=== PATIENT | female | born 2000 | race Caucasian/White ===

== ENCOUNTER 2024-07-13 17:46 | Emergency (ER) | payer BC, SELFPAY ==
[2024-07-13 17:49] VITALS: BP 157/94
--- NOTE | 2024-07-13 18:41 | ED.GENMED ---
History of Present Illness
General
Chief Complaint: Skin Problem
Source: patient
Exam Limitations: none
Time Seen by Provider: 07/13/24 18:41
Nursing documentation reviewed up to this point in time: agreed with
History of Present Illness
History of Present Illness:
24-year-old female presenting to the emergency department today with concerns of pilonidal cyst over the past few days has a history of this in the past. Does follow-up with general surgery. Has an appointment tomorrow. Denies any fevers or
systemic symptoms.
Review of Systems
Review of Systems
Allergies reviewed?: Yes
All Other Systems: ROS reviewed and negative except as documented in HPI and ROS
Phy Exam
Physical Exam
Physical Exam:
GENERAL: Alert , in no apparent distress
EYE: pupils equal and reactive
NECK: Supple, no significant adenopathy.
ENT: o/p clr, mmm.
CARDIAC: Regular rate and rhythm .
LUNGS: Clear breath sounds bilaterally, no acute respiratory distress, no wheezes/rales/rhonchi
ABDOMEN: Pilonidal cyst with spontaneous drainage. Small amount of surrounding redness and warmth. Abdomen is soft, without focal tenderness, no r/g, no cvat
NEUROLOGICAL: Alert and oriented, no focal neuro deficits
SKIN: Warm and dry, skin intact.
MUSCULOSKELETAL: No edema, well perfused.
PSYCH: Normal and appropriate interaction.
Course
Vital Signs
Initial and Last Documented VS:
Initial Vital Signs
Temp Pulse Resp BP Pulse Ox
97.7 F 86 20 157/94 99
07/13/24 17:49 07/13/24 17:49 07/13/24 17:49 07/13/24 17:49 07/13/24 17:49
Last Documented Vital Signs
Temp Pulse Resp BP Pulse Ox
97.7 F 86 20 157/94 99
07/13/24 17:49 07/13/24 17:49 07/13/24 17:49 07/13/24 17:49 07/13/24 17:49
MDM/Problems Addressed
MDM/Problems Addressed:
24-year-old female presenting with pilonidal cyst with spontaneous drainage. Small mount of surrounding redness potentially surrounded by cellulitis concerning this was started on antibiotics otherwise we will see her general surgeon tomorrow.
Generally well-appearing.
*Critical Care Note
Total Time (30-74mins, 75-104mins- exclusive of procedures): Not Applicable
ED Attending Note
-
Portions of this chart may have been created with voice recognition software.� Occasional wrong word or��sound alike� substitutions may have occurred due to the inherent limitations of voice recognition software.
Discharge Plan
Departure
Patient Disposition: Home (Routine Discharge)
Date of Disposition: 07/13/24
Time of Disposition: 18:42
Patient with high blood pressure during this ER visit?: No
Condition: Good
Covid-19: Not Applicable
Discharge Problem:
Pilonidal cyst
Instructions: Pilonidal Cyst (DC)
Prescriptions:
New
amoxicillin-pot clavulanate 875-125 mg tablet
1 tab PO BID 7 Days Qty: 14 0RF
Activity Restrictions/Additional Instructions:
You came to the emergency department today with concerns of a pilonidal cyst that appear to be draining. You are started on antibiotics and please follow-up with the general surgeon tomorrow for further recommendations. Return to the emergency
department for any worsening, new or concerning symptoms.
Interventions
Interventions:
*Risk Screen - Suicide Last Done: 07/13/24 17:48
*General Assessment Last Done: 07/13/24 17:48
*Neglect/Abuse Screening Last Done: 07/13/24 17:48
Discharge Date and Time
Print Language: YAKUT
[2024-07-13] MEDS: KEFLEX 500 MG PO (18:55)
== END 2024-07-13 18:56 | disposition home or self-care (01) ==
LOC: EMR 17:46
PROVIDERS: EMERGENCY PHYSICIAN Emergency Medicine; FAMILY PHYSICIAN Internal Medicine
DX: L05.91 Pilonidal cyst without abscess (principal)
CPT/HCPCS: 99282

== ENCOUNTER 2024-09-02 06:07 | Day surgery (SDC) | payer BC, SELFPAY ==
[2024-09-02] VITALS (7 sets, daily range): BP systolic 121–145; BP diastolic 61–95; BMI 42.3
[2024-09-02] MEDS: TYLENOL 1000 MG PO (06:38)
[2024-09-02] MEDS: NORMOSOL-R/PLASMALYTE-A 1000 IV (06:51)
== END 2024-09-02 10:51 | disposition home or self-care (01) ==
LOC: SDS 06:07
PROVIDERS: ATTENDING PHYSICIAN Surgery
DX: L05.91 Pilonidal cyst without abscess (principal)
CPT/HCPCS: 11772; 88304